=== PATIENT | female | born 1990 | race Caucasian/White ===

== ENCOUNTER 2019-05-20 18:40 | Emergency (ER) | payer SELFPAY ==
[~2019-05-20] VITALS: Ht 162.6 cm; Wt 55.6 kg
[~2019-05-20 18:40] MED LIST: CYCL10TA7 PO; NAPR-985 PO
[2019-05-20 18:46] VITALS: Ht 162.6 cm; Wt 55.6 kg
[2019-05-20 20:39] VITALS: BP 143/67; PULSE 77; RESP 20
== END 2019-05-20 20:36 | disposition home or self-care (01) ==
LOC: FTE 18:40
DX: S13.4XXA Sprain of ligaments of cervical spine, initial encounter (principal); F17.210 Nicotine dependence, cigarettes, uncomplicated; S00.83XA Contusion of other part of head, initial encounter; V49.59XA Passenger injured in collision with other motor vehicles in traffic accident, initial encounter
CPT/HCPCS: 99283